=== PATIENT | male | born 1985 | race Caucasian/White ===

== ENCOUNTER → 2017-05-17 | Day surgery (SDC) | payer OTHER ==
[2017-05-05 13:09] VITALS: Ht 190.5 cm; Wt 115.9 kg
[~2017-05-17] VITALS: Ht 190.5 cm; Wt 115.9 kg
[~2017-05-17] MED LIST: CITA40TA12 PO; LIDOCAINE HCL 2% 2 ML VIAL (20MG/ML) ONE; PROPOFOL IV EMULSION 10 MG/ML 20 ML VIAL IV ONE; SODIUM CHLORIDE 0.9% 500ML 500 ML IV ONE
[2017-05-17 14:48] VITALS: TEMP 36.9
--- NOTE | 2017-05-17 15:06 | Endo History and Physical ---
History & Physical Date of Service: May 17, 2017. Chief Complaint: DYSPHAGIA Referring Physician: KWAKU GUY History of Present Illness 32 yo CM who presents for EGD secondary to esophageal dysphagia Past Surgical History Hx Cardiac Surgery: No Hx Internal Defibrillator: No Hx Pacemaker: No Hx Abdominal Surgery: No Hx of Implantable Prosthesis: No Hx Cancer Surgery: No Hx Thoracic Surgery: No Hx Orthopedic: No Hx Urinary Tract Surgery: No Family History None Social History Smoking Status: Never Smoker Hx Substance Use: No Hx Alcohol Use: Yes (OCCASIONAL) Allergies Coded Allergies: No Known Allergies (Verified , 05/17/17) Current Medications Reported Home Medications Medications Dose Route/Sig Max Daily Dose Days Date Category Celexa (Citalopram Hydrobromide) 40 Mg Tab 40 Mg PO QAM 05/05/17 Reported Vital Signs Weight (Kilograms): 115.91 Height (Feet): 6 Height (Inches): 3 Date Time Temp Pulse Resp B/P (MAP) Pulse Ox O2 Delivery O2 Flow Rate FiO2 05/17/17 14:48 36.9 66 20 139/81 (100) 95 Room Air Physical Exam General Appearance: WD/WN, no apparent distress Respiratory/Chest: Auscultation: breath sounds normal Cardiovascular: Heart Auscultation: RRR Abdomen: Bowel Sounds: normal Inspection & Palpation: soft, non-distended, no tenderness, guarding & rebound Assessment and Plan Assessment: 32 yo CM who presents for EGD secondary to esophageal dysphagia Plan: Proceed with EGD.
--- NOTE | 2017-05-17 15:27 | GI REPORT ---
Procedure Date: 05/17/2017 3:14 PM Procedure: Upper GI endoscopy Indications: Dysphagia Medicines: Monitored Anesthesia Care Complications: No immediate complications. Estimated Blood Loss: Estimated blood loss: none. Procedure: Pre-Anesthesia Assessment: - Prior to the procedure, a History and Physical was performed, and patient medications and allergies were reviewed. The patient's tolerance of previous anesthesia was also reviewed. The risks and benefits of the procedure and the sedation options and risks were discussed with the patient. All questions were answered, and informed consent was obtained. Prior Anticoagulants: The patient has taken no previous anticoagulant or antiplatelet agents. ASA Grade Assessment: II - A patient with mild systemic disease. After reviewing the risks and benefits, the patient was deemed in satisfactory condition to undergo the procedure. After obtaining informed consent, the endoscope was passed under direct vision. Throughout the procedure, the patient's blood pressure, pulse, and oxygen saturations were monitored continuously. The scope was introduced through the mouth, and advanced to the second part of duodenum. The upper GI endoscopy was accomplished without difficulty. The patient tolerated the procedure well. Findings: A non-obstructing Schatzki ring (acquired) was found at the gastroesophageal junction. Biopsies were taken with a cold forceps for histology. A small hiatus hernia was present. Localized mild inflammation characterized by erythema was found in the gastric antrum. Biopsies were taken with a cold forceps for histology. The examined duodenum was normal. Impression: - Non-obstructing Schatzki ring. Biopsied. - Small hiatus hernia. - Gastritis. Biopsied. - Normal examined duodenum. Recommendation: - Resume previous diet. - Continue present medications. - Await pathology results. - Perform a cine-esophagram at appointment to be scheduled. - Return to GI office as previously scheduled. Floyd Leyva DO 05/17/2017 3:27:25 PM This report has been signed electronically. Note Initiated On: 05/17/2017 3:14 PM I attest to the content of the Intraoperative Record and orders documented therein, exceptions below
[2017-05-17 15:54] VITALS: BP 129/79; PULSE 63; O2SAT 98
--- NOTE | 2017-05-17 15:59 | Anesthesiology Progress Note ---
Anesthesia Post Op Note Date & Time May 17, 2017 at 15:58 Vital Signs Pain Intensity: 0 Vital Signs Past 12 Hours Date Time Temp Pulse Resp B/P (MAP) Pulse Ox O2 Delivery O2 Flow Rate FiO2 05/17/17 15:54 63 18 129/79 (96) 98 Room Air 05/17/17 15:44 68 16 119/78 (92) 97 Room Air 05/17/17 15:29 67 16 112/72 (85) 97 Room Air 05/17/17 14:48 36.9 66 20 139/81 (100) 95 Room Air Notes Mental Status: alert / awake / arousable, participated in evaluation Pt Amnestic to Procedure: Yes Nausea / Vomiting: adequately controlled Pain: adequately controlled Airway Patency, RR, SpO2: stable & adequate BP & HR: stable & adequate Hydration State: stable & adequate Anesthetic Complications: no major complications apparent
--- NOTE | 2017-05-17 16:52 | Discharge Instructions ---
Endoscopy Patient Instructions Date / Procedure(s) Performed May 17, 2017. EGD Allergy Information Coded Allergies: No Known Allergies (Verified , 05/17/17) Discharge Date / Findings May 17, 2017. Gastritis s/p biopsies Hiatal hernia Schatzki's ring s/p disruption with cold forceps Medication Instructions 1) Start Omeprazole 40mg by mouth each morning 1/2 hour prior to breakfast. 2) OK to resume all medications today as prescribed Reported Home Medications Medications Dose Route/Sig Max Daily Dose Days Date Category Celexa (Citalopram Hydrobromide) 40 Mg Tab 40 Mg PO QAM 05/05/17 Reported Provider Instructions Activity Restrictions - No exercising or heavy lifting for 24 hours. - Do not drink alcohol the day of the procedure. - Do not drive a car or operate machinery until the day after the procedure. - Do not make any important decisions or sign important papers in 24 hours after the procedure. Following Day: - Return to full activity which may include returning to work/school. Diet Start your diet with liquids and light foods (jello, soup, juice, toast). Then eat your usual diet if not nauseated. Treatment For Common After Affects For mild abdominal pain, bloating, or excessive gas: - Rest - Eat lightly - Lie on right side Follow-Up Information Follow-up with KWAKU GUY as scheduled Anesthesia Information What You Should Know You have had a procedure that required some medicine to reduce anxiety and discomfort. This treatment is called moderate sedation. After receiving the treatment, you may be sleepy, but you will be able to breathe on your own. The effects of the treatment may last for several hours. Follow these instructions along with Activity/Diet recommendations noted above: * Do NOT do anything where dizziness or clumsiness would be dangerous. * Rest quietly at home today, then you can be up and about tomorrow. * Have a responsible person stay with you the rest of today. * You may have had an I.V. today. If so, you may take the dressing off later today. Recommendations Call your doctor if: * Trouble breathing * Continuous vomiting for more than 24 hours * Temperature above 101 degrees * Severe abdominal pain or bloating * Pain not relieved by pain medicine ordered * There is increased drainage or redness from any incision * A large amount of rectal bleeding greater than 2-3 tablespoons. (If you had a polyp/s removed or have hemorrhoids, a small amount of blood - from the rectum is to be expected.) * You have any unanswered questions or concerns. IN THE EVENT OF A SERIOUS EMERGENCY, GO TO THE NEAREST EMERGENCY ROOM Your discharge instructions were prepared by provider Floyd Leyva. Patient Instructions Signature Page Rosendo Novak Patient (or Guardian) Signature/Date: I have read and understand the instructions given to me by my caregivers. Caregiver/RN/Doctor Signature/Date: The above-named patient and/or guardian has received patient instructions on this date. + Original Patient Signature Page (only) stays with chart. Please make copy for patient.
== END | disposition home or self-care (01) ==
LOC: C.GI 14:23
PROVIDERS: ATTEND Internal Medicine
DX: K22.2 Esophageal obstruction (principal); K44.9 Diaphragmatic hernia without obstruction or gangrene; K29.50 Unspecified chronic gastritis without bleeding; K20.0 Eosinophilic esophagitis; Z79.899 Other long term (current) drug therapy

== ENCOUNTER → 2017-05-26 | Outpatient (CLI) | payer OTHER ==
[~2017-05-26] MED LIST changes: -LIDOCAINE HCL 2% 2 ML VIAL (20MG/ML) ONE; -PROPOFOL IV EMULSION 10 MG/ML 20 ML VIAL IV ONE; -SODIUM CHLORIDE 0.9% 500ML 500 ML IV ONE
--- NOTE | 2017-05-26 08:21 | DIAGNOSTIC IMAGING REPORT ---
(BARIUM SWALLOW) ESOPHAGUS CLINICAL HISTORY: R13.10 [id number] COMPARISON STUDY: None FLUOROSCOPY TIME: 0.9 minutes. FINDINGS: Patient initiates swallowing function well. No evidence for aspiration. Mild esophageal irritability. Small hiatal hernia. Moderate gastroesophageal reflux. IMPRESSION: 1. Normal swallowing function. 2. Small hiatal hernia. 3. Moderate gastroesophageal reflux. The above report was generated using voice recognition software. It may contain grammatical, syntax or spelling errors. Electronically signed by: Reji Smith M.D. 05/26/2017 8:20 AM Dictated Date/Time: 05/26/2017 8:16 AM
== END | disposition home or self-care (01) ==
LOC: C.RAD 07:25
PROVIDERS: ATTEND Internal Medicine
DX: R13.10 Dysphagia, unspecified (principal)

== ENCOUNTER → 2018-05-03 | Outpatient (CLI) | payer OTHER | END | disposition home or self-care (01) | LOC: C.LAB1850 09:52 | PROVIDERS: ATTEND Nurse Practitioner Adult Health | DX: Z13.220 Encounter for screening for lipoid disorders (principal) ==